=== PATIENT | female | born 1990 | race Caucasian/White ===

== ENCOUNTER 2018-11-07 19:53 | Emergency (ER) | payer OTHER ==
[2018-11-08] MEDS ORDERED: KETOROLAC 30 MG INJ IM (00:13)
[2018-11-08] MEDS: SOD CHLORIDE 0.9% 1,000 ML IV (00:52)
[2018-11-08] MEDS: METOCLOPRAMIDE 10 MG INJ IV (00:56)
[2018-11-08] MEDS: DIPHENHYDRAMINE 50 MG INJ IV (00:56)
[2018-11-08] MEDS: KETOROLAC 30 MG INJ IV (01:19)
== END 2018-11-08 01:44 | disposition home or self-care (01) ==
LOC: FTE 11-08 01:44
DX: R51 Headache (principal); R11.2 Nausea with vomiting, unspecified
CPT/HCPCS: 81025; 96361; 96374; 96375; 99284-25